=== PATIENT | male | born 1980 | race Caucasian/White ===

== ENCOUNTER 2019-07-25 12:36 | Observation (INO) | payer OTHER, SELFPAY ==
[2019-07-25] MEDS ORDERED: Morphine 4 MG/ML VIAL ONE ×2 (13:00→14:36)
[2019-07-25] MEDS ORDERED: Ondansetron PF 4 MG/2 ML Vial ONE (13:01)
[2019-07-25] MEDS ORDERED: Adacel (T-DAP) 0.5 ML SYRINGE ONE (13:01)
[2019-07-25 13:09] LABS: #Basophils 0.1 thou/uL (0.0-0.2); #Eosinphils 0.3 thou/uL (0.0-0.7); #Lymphocytes 2.4 thou/uL (1.20-3.40); #Monocytes 0.4 thou/uL (0.11-0.59); #Neutrophils 2.9 thou/uL (1.40-6.50); %Basophils 0.9 % (0.0-1.0); %Eosinophils 5.5 % (0.0-10.0); %Lymphocytes 39.4 % (21.0-51.0); %Monocytes 6.1 % (0.0-10.0); %Neutrophils 48.1 % (42.0-75.0); Hemoglobin 15.7 g/dL (14.0-18.0); Mean Corpuscular Hemoglobin 30.3 pg (27.0-31.0); Mean Platelet Volume 7.2 fL (7.4-10.4); Platelet Count 254 thou/uL (130-400); RBC Distribution Width 11.7 % (11.5-14.5); Red Blood Cell (RBC) Count 5.19 mill/uL (4.70-6.10); White Blood Cell (WBC) Count 6.1 thou/uL (4.8-10.8)
[2019-07-25 13:22] LABS: PTT 28.2 SEC (22.9-36.1)
[2019-07-25 13:23] LABS: Prothrombin Time 13.3 SEC (12.0-14.7)
[2019-07-25 13:30] LABS: ALT (SGPT) 44 U/L (8-55); AST (SGOT) 26 U/L (5-34); Albumin 4.7 g/dL (3.5-5.0); Alkaline Phosphatase 81 U/L (40-110); Anion Gap 14 mmol/L (10-20); BUN (Urea Nitrogen) 21 mg/dL (8.9-20.6); Bilirubin, Total 0.5 mg/dL (0.2-1.2); CK (CPK) 184 U/L (30-200); Calc. Creatinine Clearance 0 mL/min (70-130); Calcium 9.9 mg/dL (7.8-10.44); Carbon Dioxide 25 mmol/L (22-29); Chloride 103 mmol/L (98-107); Estimated GFR-MDRD 68; Globulin 2.3 g/dL (2.4-3.5); Glucose 115 mg/dL (70-105); Potassium 3.9 mmol/L (3.5-5.1); Sodium 138 mmol/L (136-145)
[2019-07-25] MEDS ORDERED: Crotalidae Polyvlnt Antivenin 4 GM in Sodium Chloride 0.9% 250 ML 250 ML IVPB SCH (15:00)
[2019-07-25] MEDS ORDERED: HOLD ALL ANTI-COAGULANTS/ANTI-PLATELETS/NSAIDS PO SCH (15:00)
--- NOTE | 2019-07-25 15:25 | HP ---
PRIMARY CARE PHYSICIAN: [facility] Call admission. REASON FOR ADMISSION: Snake bite. HISTORY OF PRESENT ILLNESS: A 39-year-old male with past medical history of bipolar disorder, who was doing gardening work this morning. At that point, he was stuck by Copper[place] snake. Copperhead snake bit him over left index finger, and subsequently, he was experiencing throbbing pain. His swelling was progressing to left hand. He was having 6/10 in intensity pain. He denies any shortness of breath, nausea, vomiting, chest pain, chest tightness, or wheezing. He denies any similar problem in the past. He came to emergency room and we noted that his swelling was progressing, and that is why the ER physician decided to give him CroFab. The patient will be admitted for observation. REVIEW OF SYSTEMS: CONSTITUTIONAL: Negative for weight loss or gain, ability to conduct usual activities. SKIN: Negative for rash, itching. EYES: Negative for double vision, pain. ENT/MOUTH: Negative for nose bleeding, neck stiffness, pain, tenderness. CARDIOVASCULAR: Negative for palpitations, dyspnea on exertion, orthopnea. RESPIRATORY: Negative for shortness of breath, wheezing, cough, hemoptysis, fever or night sweats. GASTROINTESTINAL: Negative for poor appetite, abdominal pain, heartburn, nausea, vomiting, constipation, or diarrhea. GENITOURINARY: Negative for urgency, frequency, dysuria, nocturia. MUSCULOSKELETAL: Negative for pain, swelling. NEUROLOGIC/PSYCHIATRIC: Negative for anxiety, depression. ALLERGY/IMMUNOLOGIC: Negative for skin rash, bleeding tendency. Please see my HPI for pertinent positives and negatives. All other review of systems reviewed and negative except as mentioned in HPI. PAST MEDICAL HISTORY: Reviewed and negative. PAST SURGICAL HISTORY: Appendicectomy. PAST PSYCHIATRIC HISTORY: 1. Anxiety. 2. Depression. 3. Bipolar disorder. SOCIAL HISTORY: The patient lives at home. He is not working. He lives with family. He abuses marijuana on and off basis. He smokes occasionally. He denies any alcohol abuse. FAMILY HISTORY: No family history of significant coronary artery disease, stroke, or cancer. CURRENT HOME MEDICATIONS: The patient takes lithium and other medication for his psychiatric problem. He did not bring medication, so unable to review the dose. ALLERGIES: PENICILLIN. EMERGENCY ROOM COURSE: The patient is receiving IV fluid. He is given 4 vial of CroFab, morphine 4 mg IV push given x2, Tdap booster dose is given, Zofran given. PHYSICAL EXAMINATION: VITAL SIGNS: Currently, blood pressure 132/81, pulse 86, respiratory rate 20, temperature 97.5, and saturation 98% on room air. Weight 86.1 kg. GENERAL: The patient is currently alert and oriented x3, in no acute distress. HEAD: Normocephalic and atraumatic. EYES: Pupils round and reactive to light. Extraocular muscle intact. ENT: Oropharynx within normal limits. Moist mucous membranes. No oral lesion. No pharyngeal erythema. No exudate. NECK: Supple. No JVD. No thyromegaly. No carotid bruit. No jugular venous distention. LUNGS: Clear to auscultation without any rhonchi or rales. CARDIAC: S1 and S2. Regular without any murmur. No gallop. No rub. ABDOMEN: Soft. Bowel sounds present. Nontender. Nondistended. No organomegaly. No mass. No suprapubic tenderness. BACK: Unremarkable. No CVA tenderness. EXTREMITIES: Upper extremities; passive movement of all joints are normal. Left index finger has a bite mirlande over middle phalanx. Swelling is noted over the entire dorsal aspect of left hand with tenderness and mild warmth without any erythema. Lower extremities; no edema. Good distal pulsation. SKIN: No skin rash. HEMATOLOGICAL SYSTEM: No lymphadenopathy. NEUROLOGIC: Nonfocal examination. Speech normal. PSYCHIATRIC: Normal affect. SIGNIFICANT LABORATORY DATA: CBC; WBC 6.1, hemoglobin 15.7, and platelets 254. INR 1.0 and fibrinogen 285. BMP; sodium 138, potassium 3.9, chloride 103, carbon dioxide 25, anion gap 14, BUN 21, creatinine 1.19, glucose 115, and calcium 9.9. LFT; AST 26, ALT 44, alkaline phosphatase 81, and albumin 4.7. ASSESSMENT AND PLAN: 1. Left hand swelling secondary to snake bite. As swelling is progressing and the patient has worsening pain, that is why the patient will receive CroFab as per protocol. The patient will be observed on medical floor. We will continue to monitor his swelling on left upper extremity, and based on protocol, we will decide to give him CroFab. We will watch for any side effects or any allergic reaction. We will control his pain with morphine p.r.n. basis. We will monitor labs as necessary. 2. Anxiety, depression, and bipolar disorder. The patient will continue all his psychiatric medication after verification while in hospital. 3. Cannabis abuse. Counseling given for healthy lifestyle. 4. Deep venous thrombosis prophylaxis, not needed because we are expecting discharge in 24 hours. 5. Gastrointestinal prophylaxis. Pepcid 20 mg p.o. b.i.d. 6. Code status. The patient is full code. The patient does not have any surrogate decision maker. DISPOSITION PLAN: Based on clinical course, we are expecting the patient's stay in hospital 24 hours. Plan of care discussed with the patient and his mother at bedside in the emergency room. Job ID: [id number]
[2019-07-25 16:33] VITALS: BMI 26.4
[2019-07-25] MEDS ORDERED: Zolpidem Tartrate 5 MG TAB PO PRN (16:34)
[2019-07-25] MEDS ORDERED: Senokot S 8.6-50 MG TAB PO PRN (16:34)
[2019-07-25] MEDS ORDERED: Loperamide HCl 2 MG CAP PO PRN (16:34)
[2019-07-25] MEDS ORDERED: Ondansetron PF 4 MG/2 ML Vial IVP PRN (16:34)
[2019-07-25] MEDS ORDERED: Sodium Chloride 0.65% Nasal 44 ML BOT EA NARE PRN (16:34)
[2019-07-25] MEDS ORDERED: HYDROcodone/Acetaminophen 5/325 mg Tablet PO PRN (16:34)
[2019-07-25] MEDS ORDERED: Loratadine 10 MG TAB PO PRN (16:34)
[2019-07-25] MEDS ORDERED: Ondansetron ODT 4 MG TAB PO PRN (16:34)
[2019-07-25] MEDS ORDERED: Cepastat Lozenges 1 LOZ PO PRN (16:34)
[2019-07-25] MEDS ORDERED: Acetaminophen 325 MG TAB PO PRN (16:34)
[2019-07-25] MEDS ORDERED: Calcium Carbonate 500 MG ChewTAB PO PRN (16:34)
[2019-07-25] MEDS ORDERED: hydrALAZINE 20 MG/ML VIAL SLOW IVP PRN (16:34)
[2019-07-25] MEDS ORDERED: Diabetic Tussin 200 MG/10 ML UDCUP PO PRN (16:34)
[2019-07-25] MEDS ORDERED: Bisacodyl 10 MG SUPP PR PRN (16:34)
[2019-07-25] MEDS: Morphine 4 MG/ML VIAL SLOW IVP PRN ×2 (16:50→21:07)
[2019-07-25] MEDS: Famotidine 20 MG TAB PO SCH (21:00)
[2019-07-26 05:02] LABS: #Basophils 0.1 thou/uL (0.0-0.2); #Eosinphils 0.4 thou/uL (0.0-0.7); #Lymphocytes 2.6 thou/uL (1.20-3.40); #Monocytes 0.4 thou/uL (0.11-0.59); #Neutrophils 3.5 thou/uL (1.40-6.50); %Basophils 1.1 % (0.0-1.0); %Eosinophils 5.3 % (0.0-10.0); %Lymphocytes 37.6 % (21.0-51.0); %Monocytes 5.6 % (0.0-10.0); %Neutrophils 50.5 % (42.0-75.0); Hemoglobin 14.6 g/dL (14.0-18.0); Mean Corpuscular HGB CONC 34.1 g/dL (32.0-36.0); Mean Corpuscular Hemoglobin 30.6 pg (27.0-31.0); Mean Corpuscular Volume 89.7 fL (78.0-98.0); Mean Platelet Volume 6.8 fL (7.4-10.4); Platelet Count 210 thou/uL (130-400); RBC Distribution Width 11.7 % (11.5-14.5); Red Blood Cell (RBC) Count 4.79 mill/uL (4.70-6.10); White Blood Cell (WBC) Count 6.9 thou/uL (4.8-10.8)
[2019-07-26 05:20] LABS: Anion Gap 10 mmol/L (10-20); BUN (Urea Nitrogen) 15 mg/dL (8.9-20.6); Calc. Creatinine Clearance 132 mL/min (70-130); Calcium 8.7 mg/dL (7.8-10.44); Carbon Dioxide 23 mmol/L (22-29); Chloride 108 mmol/L (98-107); Estimated GFR-MDRD Greater than 90; Glucose 98 mg/dL (70-105); Sodium 137 mmol/L (136-145)
[2019-07-26 09:31] VITALS: BP 127/75; TEMP 98.4
[2019-07-26] MEDS: Famotidine 20 MG TAB PO SCH (09:35)
[2019-07-26 11:09] LABS: Prothrombin Time 13.3 SEC (12.0-14.7)
[2019-07-26 11:10] LABS: PTT 31.6 SEC (22.9-36.1)
--- NOTE | 2019-07-27 06:59 | DIS ---
DATE OF ADMISSION: 07/25/2019 DATE OF DISCHARGE: 07/26/2019 DISPOSITION: The patient left against medical advice. FINAL DIAGNOSIS: Right hand copperhead snakebite. CONDITION: Stable and improved. DIET: Regular diet. MEDICATIONS: Please refer to medication discharge reconciliation form. ACTIVITY: As tolerated. Do not over exert yourself, no strenuous activities. DISCHARGE INSTRUCTIONS: If any fevers, chills, nausea, vomiting, chest pain, shortness of breath, bleeding, swelling, weakness, numbness to seek immediate medical attention. FOLLOWUP: Followup primary care physician in 1 week. BRIEF HOSPITAL COURSE: Jethro Hernandez is a 39-year-old male who was admitted to the hospital after having been bit by a copperhead snake for which he was placed on observation after receiving anti-venin therapy, both in the emergency room and then subsequently had a second dose while in the observation status for which there was no evidence of bleeding. A repeat PT/INR was done this morning. The patient did not want to wait for test results. He did not have any thrombocytopenia. His coagulation profile was normal. He remained afebrile. There was no evidence of any skin or soft tissue infection. He had full range of motion of all his 5 fingers as he was able to hold a consultant internship and not having numbness, no tingling. There was no discoloration. On the day of discharge in my yrgo-pi-lloc meeting with the patient, discussed all discharge instructions including the need for compliance with medication, followup and when to return to emergency room for, which he has verbalized understanding. The patient wanted to leave against medical advice prior to having test results been drawn for his coagulation, which is important just to make sure that he did not develop any coagulopathy after approximately 24 hours. The patient wanted to leave and did not want to wait. Nursing was aware about patient leaving against medical advice. Job ID: [id number]
== END 2019-07-26 11:15 | disposition left against medical advice (07) ==
LOC: ERS 12:36 → 2SW 14:52
PROVIDERS: ADMIT Internal Medicine; ATTEND Internal Medicine
DX: T63.061A Toxic effect of venom of other North and South American snake, accidental (unintentional), initial encounter (principal); M79.89 Other specified soft tissue disorders; M79.645 Pain in left finger(s); F31.9 Bipolar disorder, unspecified; F41.9 Anxiety disorder, unspecified; F12.10 Cannabis abuse, uncomplicated; F17.210 Nicotine dependence, cigarettes, uncomplicated; Z53.21 Procedure and treatment not carried out due to patient leaving prior to being seen by health care provider; Z79.899 Other long term (current) drug therapy
CPT/HCPCS: 36415; 80048; 80053; 82550; 85025; 85384; 85610; 85730; 90471; 90715; 93005; 96361; 96365; 96366; 96374; 96375; 96376; G0378; J0840; J2270; J2405; J7050

== ENCOUNTER 2020-06-16 11:14 | Inpatient (IN) | payer SELFPAY ==
[2020-06-16] MEDS ORDERED: Communication Order-Pharmacy FS ONE (12:03)
[2020-06-16] MEDS ORDERED: Aspirin 81 mg Enteric Coated Tablet PO SCH (13:00)
[2020-06-16 13:12] LABS: #Basophils 0.1 thou/uL (0.0-0.2); #Eosinphils 0.3 thou/uL (0.0-0.7); #Lymphocytes 2.4 thou/uL (1.20-3.40); #Monocytes 0.3 thou/uL (0.11-0.59); #Neutrophils 3.6 thou/uL (1.40-6.50); %Basophils 0.9 % (0.0-1.0); %Eosinophils 4.6 % (0.0-10.0); %Lymphocytes 36.4 % (21.0-51.0); %Monocytes 4.9 % (0.0-10.0); %Neutrophils 53.2 % (42.0-75.0); Hemoglobin 15.2 g/dL (14.0-18.0); Mean Corpuscular HGB CONC 32.9 g/dL (32.0-36.0); Mean Corpuscular Hemoglobin 29.3 pg (27.0-31.0); Mean Corpuscular Volume 88.8 fL (78.0-98.0); Mean Platelet Volume 7.6 fL (7.4-10.4); Platelet Count 222 thou/uL (130-400); RBC Distribution Width 11.1 % (11.5-14.5); Red Blood Cell (RBC) Count 5.19 mill/uL (4.70-6.10); White Blood Cell (WBC) Count 6.7 thou/uL (4.8-10.8)
[2020-06-16 13:32] LABS: Anion Gap 9 mmol/L (10-20); BUN (Urea Nitrogen) 15 mg/dL (8.9-20.6); Calc. Creatinine Clearance 118 mL/min (70-130); Calcium 9.3 mg/dL (7.8-10.44); Carbon Dioxide 26 mmol/L (22-29); Chloride 104 mmol/L (98-107); Estimated GFR-MDRD 82; Glucose 97 mg/dL (70-105); Potassium 4.3 mmol/L (3.5-5.1); Sodium 135 mmol/L (136-145)
[2020-06-16 13:47] LABS: INR-International Normal Ratio 0.9; Prothrombin Time 12.1 sec (12.0-14.7)
[2020-06-16 13:48] LABS: PTT 28.7 sec (22.9-36.1)
[2020-06-16] MEDS ORDERED: Metoprolol Tartrate 25 MG TAB PO SCH (15:15)
--- NOTE | 2020-06-16 18:56 | CON ---
DATE OF CONSULTATION: HISTORY OF PRESENT ILLNESS: This is a 40-year-old gentleman, who was being evaluated by Dr. Louis for exertional angina. The patient had a markedly abnormal myocardial perfusion study and then today underwent cardiac catheterization where he was found to have severe triple-vessel disease including essentially occluded right coronary artery with right to right and left to right collaterals, subtotal diagonal that filled slowly 75% proximal LAD and 90% mid circumflex prior to a bifurcating OM. PAST MEDICAL HISTORY: Bipolar disorder. He denies any history of hypertension or dyslipidemia. He does not smoke cigarettes, but does use marijuana. FAMILY HISTORY: Negative for early heart disease, although grandparents did have heart disease later in life. SOCIAL HISTORY: He is a nonsmoker besides marijuana, nondrinker, lives with his parents, unemployed at the present time with both his parents being retired educator from the [employer]. PAST SURGICAL HISTORY: Appendectomy and lipoma removal. ALLERGIES: PENICILLIN. MEDICATIONS: 1. Aspirin 81 a day. 2. Fluoxetine 20 a day. 3. Trileptal 600 daily. 4. [place] 600 mg b.i.d. PHYSICAL EXAMINATION: VITAL SIGNS: Height 5 feet 11 inches, weight 188 pounds. NECK: No carotid bruits. LUNGS: Clear to auscultation. CARDIAC: Regular rate and rhythm. No murmurs. ABDOMEN: Firm, soft, and nontender. No masses. EXTREMITIES: He has palpable femoral, popliteal, and posterior tibial pulses with no peripheral edema. No dorsalis pedis pulses. He has a compression device on his right radial artery and easily palpated left radial artery with a normal Reji test on the left, which is his nondominant arm. PLAN: Plan at this time is for multi-vessel coronary bypass grafting, [place] to LAD, saphenous vein to diagonal, distal right coronary artery and radial to the OM. Additional information of myocardial perfusion study, ejection fraction estimated at 47%. Cardiac echo, ejection fraction 60% with mild MR. Plan on coronary bypass grafting. I have gone over the risks, complications, benefits, and expectations with the patient. He has expressed some reservations about having surgery, but ultimately has decided to proceed. Job ID: [id number]
--- NOTE | 2020-06-16 18:59 | PDOC.HHP ---
Hospitalist HPI - History of Present Illness angina, admission for urgent bypass History of Present Illness: This is a 40 year old male with past medical history of schizophrenia, bipolar, depression who presented to the hospital for need for urgent bypass. Patient states that he had started developing chest pain and shortness of breath in October of this year. He describes his chest pain as a burning sensation in his chest that would occur after performing strenuous activities, such as mowing the lawn or after taking a shower, but also would occur spontaneously and while laying down. Patient reports that after performing these activities he would become diaphoretic, dizzy and nauseous. He would also get palpitations and was told that he has atrial flutter. Patient also reports having to stop frequently to catch his breath. He also describes a sensation of bloating in his stomach which is not related to eating food. The patient went to see a hip hop dance instructor and had a stress test which was abnormal. He then underwent a cardiac cath today and was found to have severe three-vessel disease with 99% lesion in his left circumflex, 75% stenosis LAD, 99 stenosis in ostial banch of LAD. He was transferred here for admission for bypass. Patient currently has never smoked cigarettes but does use marijuana on a daily basis. Hospitalist ROS - Review of Systems Constitutional: denies: fever, chills Eyes: denies: pain, vision change ENT: denies: ear pain, ear discharge Respiratory: denies: cough, shortness of breath Cardiovascular: denies: chest pain, palpitations, orthopnea - Exam General Appearance: NAD, awake alert Eye: PERRL, anicteric sclera ENT: normocephalic atraumatic, no oropharyngeal lesions Neck: no JVD Heart: RRR, no murmur, no gallops, no rubs Respiratory: CTAB, no wheezes, no rales, no ronchi, normal chest expansion, no tachypnea, normal percussion Gastrointestinal: soft, non-tender, non-distended, normal bowel sounds Extremities: no cyanosis, no clubbing, no edema Skin: normal turgor, no lesions, no rashes Neurological: cranial nerve grossly intact, normal sensation to touch, no weakness, no new deficit Musculoskeletal: normal tone, normal strength, no muscle wasting Psychiatric: normal affect, normal behavior, A&O x 3 Hospitalist Results - Labs Result Diagrams: 06/16/20 12:58 06/16/20 12:58 Lab results: WBC 6.7 thou/uL (4.8-10.8) 06/16/20 12:58 Hgb 15.2 g/dL (14.0-18.0) 06/16/20 12:58 Hct 46.1 % (42.0-52.0) 06/16/20 12:58 MCV 88.8 fL (78.0-98.0) 06/16/20 12:58 Plt Count 222 thou/uL (130-400) 06/16/20 12:58 Neutrophils % 53.2 % (42.0-75.0) 06/16/20 12:58 Sodium 135 mmol/L (136-145) L 06/16/20 12:58 Potassium 4.3 mmol/L (3.5-5.1) 06/16/20 12:58 Chloride 104 mmol/L (98-107) 06/16/20 12:58 Carbon Dioxide 26 mmol/L (22-29) 06/16/20 12:58 BUN 15 mg/dL (8.9-20.6) 06/16/20 12:58 Creatinine 1.00 mg/dL (0.7-1.3) 06/16/20 12:58 Glucose 97 mg/dL (70-105) 06/16/20 12:58 Calcium 9.3 mg/dL (7.8-10.44) 06/16/20 12:58 Troponin I 0.012 ng/mL (< 0.028) 06/16/20 12:50 Hospitalist H&P A/P - Plan Plan: Cardiac cath report 1. 20 % stenosis left main coronary artery 2. LAD 75% mid stenosis at location of a medium sized branching diagonal artery that has 99% ostial stenosis 3. 99% mid stenosis left circumflex 4. 99% mid stenosis This 40-year-old male with a past medical history of schizophrenia, bipolar, depression who presented to the emergency room after he was found to have three- vessel disease from an elective cardiac cath performed today. 3 vessel CAD - cardiothoracic surgery has been consulted for CABG. Cardiology has been consulted as well - will check EKG x 3, trend troponins and monitor on telemetry - continue aspirin 81 mg daily and statin . Metoprolol 25 mg bid has been started as well Bipolar - continue lithium, seroquel Depression - continue fluoxetine and mirtazapine Chronic hair loss - continue finasteride Code status: full code.
--- NOTE | 2020-06-16 19:26 | PDOC.FMACP ---
Advance Care Planning - Note Summary: Advanced Care Planning was discussed. The diagnosis, prognosis and goals of care were discussed. Appropriate forms and documentation to accomplish the goals of care were discussed. All questions were answered. The Palliative Care Team will be engaged to assist with completion of any outstanding forms that are needed. Patient reports he would like to be resuscitated just a few attempts but does not want prolonged measures or life support to save him. He would like to be full code for now Time Spent (mins): 40
[2020-06-16] MEDS ORDERED: Atorvastatin Calcium 40 MG TAB PO SCH (21:00)
[2020-06-16] MEDS ORDERED: Atorvastatin Calcium 20 MG TAB PO SCH (21:00)
[2020-06-16] MEDS: Lithium Carbonate 150 MG CAP PO SCH (21:11)
--- NOTE | 2020-06-16 21:11 | CON ---
DATE OF CONSULTATION: HISTORY OF PRESENT ILLNESS: The patient is a 40-year-old gentleman, with history of coronary artery disease, who presents with recurrent chest discomfort. The patient has had chest discomfort for at least six months. He reports that initially it occurred primarily with exertion. The patient states it started occurring with minimal exertion and then most recently at rest. The patient today underwent cardiac catheterization. He was found to have severe three-vessel coronary artery disease and was transferred for coronary artery bypass surgery. The patient denies having any present chest discomfort. PAST MEDICAL HISTORY: 1. Coronary artery disease. 2. Dyslipidemia. 3. Bipolar disorder. PAST SURGICAL HISTORY: Appendectomy. MEDICATIONS: 1. [place] carbonate 600 b.i.d. 2. Prozac 20 daily. 3. Trileptal 600 daily. 4. Mirtazapine 15 daily. 5. Seroquel 200 at bedtime. ALLERGIES: PENICILLIN. FAMILY HISTORY: There is a positive family history of heart disease, grandfather had coronary artery disease. REVIEW OF SYSTEMS: Ten-point system otherwise unremarkable. No history of easy bruising or bleeding. PHYSICAL EXAMINATION: GENERAL: A well-developed gentleman, in no acute distress. VITAL SIGNS: Blood pressure is 143/87. NECK: No jugular venous distention. LUNGS: Clear to auscultation. HEART: Regular rate and rhythm. Normal S1 and S2. ABDOMEN: Nondistended. EXTREMITIES: Showed no edema. VASCULAR: Radial pulses 2+. LABORATORY DATA: Sodium 135, potassium 4.3, chloride 104, bicarbonate 29, BUN 15, creatinine 1.0, glucose 97. White blood cell count 6.7, hemoglobin 15.2, hematocrit 46.1, platelets 222. INR was 0.9. EKG is pending. IMPRESSION: 1. Severe three-vessel coronary artery disease. 2. Bipolar disorder. 3. Hypertriglyceridemia. This gentleman presents with severe three-vessel coronary artery disease with minimal risk factors. The patient is being treated with Lipitor and aspirin. He needs to be on high-dose intensity statin, so will increase the dose to 40 mg. We will check the patient's triglycerides. He will need to be on Vascepa. He has hypertriglyceridemia. I will start the patient on a low dose of beta maria fernanda. We will follow this patient with you through his surgery. Job ID: [id number] [facility]
[2020-06-16] MEDS: Mirtazapine 15 MG TAB PO SCH (21:12)
[2020-06-16] MEDS: Metoprolol Tartrate 25 MG TAB PO SCH (21:12)
[2020-06-17 02:34] LABS: Anion Gap 12 mmol/L (10-20); BUN (Urea Nitrogen) 20 mg/dL (8.9-20.6); Calc. Creatinine Clearance 116 mL/min (70-130); Calcium 9.1 mg/dL (7.8-10.44); Carbon Dioxide 24 mmol/L (22-29); Chloride 107 mmol/L (98-107); Cholesterol 228 mg/dl (< 200 Desired); Estimated GFR-MDRD 81; Glucose 100 mg/dL (70-105); HDL Cholesterol 38 mg/dL (>60 Neg Risk); LDL Cholesterol, Calculated 144 mg/dL; Potassium 4.4 mmol/L (3.5-5.1); Sodium 139 mmol/L (136-145); Triglycerides 229 mg/dL (Less than 150)
[2020-06-17] MEDS ORDERED: Albumin 5% 500 ML ONE (06:34)
[2020-06-17] MEDS ORDERED: Heparin 10,000 UNITS/1 ML VIAL 30,000 UNITS in Sodium Chloride 0.9% 1,000 ML FS SCH (06:45)
[2020-06-17] MEDS ORDERED: Midazolam HCl 2 mg/2 ml Vial ONE (07:13)
[2020-06-17] MEDS ORDERED: Midazolam HCl 5 mg/5 ml Vial ONE (07:16)
[2020-06-17] MEDS ORDERED: Fentanyl 250 MCG/5 ML VIAL ONE (07:16)
[2020-06-17] MEDS ORDERED: Clindamycin/D5W 900 mg/50 ml Premix Bag ONE (07:19)
[2020-06-17] MEDS ORDERED: Levofloxacin 500 mg/D5W 100 ml Premix Bag ONE (07:19)
[2020-06-17] MEDS ORDERED: PHENYLEPHRINE-NS 100 MCG/ML 10 ML SYRINGE ONE (08:41)
[2020-06-17] MEDS ORDERED: Aspirin Chewable 81 MG TAB PO SCH (09:00)
[2020-06-17] MEDS ORDERED: OXcarbazepine 600 MG TAB PO SCH (09:00)
[2020-06-17] MEDS ORDERED: Rocuronium Bromide 50 MG/5 ML VIAL ONE (09:10)
[2020-06-17] MEDS ORDERED: Sodium Bicarb 50 MEQ/50 ML Abboject 8.4% SYRINGE ONE (09:12)
[2020-06-17] MEDS ORDERED: Heparin 30,000 units/30 ml VIAL ONE (09:12)
[2020-06-17] MEDS ORDERED: PROPOFOL 200 MG/20 ML VIAL ONE (09:12)
[2020-06-17] MEDS ORDERED: Cardioplegic Soln 1,000 ML BAG ONE (09:12)
[2020-06-17] MEDS ORDERED: Magnesium Sulfate 1 GM/2 ML VIAL ONE (09:12)
[2020-06-17] MEDS ORDERED: Protamine Sulfate 250 MG/25 ML VIAL ONE (09:12)
[2020-06-17] MEDS ORDERED: Heparin 5,000 UNITS/ML VIAL ONE (09:12)
[2020-06-17] MEDS ORDERED: Papaverine 60 MG/2 ML VIAL ONE (09:12)
[2020-06-17] MEDS ORDERED: Potassium Chloride 60 MEQ/30 ML VIAL ONE (09:12)
[2020-06-17] MEDS ORDERED: Lidocaine 2% PF 5 ML VIAL ONE (09:12)
[2020-06-17] MEDS ORDERED: Aminocaproic Acid 5 GM/20 ML VIAL ONE (09:12)
[2020-06-17] MEDS ORDERED: Rocuronium Bromide 10 MG/ML (10ML VIAL) ONE (09:12)
[2020-06-17] MEDS ORDERED: Thrombin 5000 UNITS/5 ML VIAL ONE (09:12)
[2020-06-17] MEDS ORDERED: Calcium Chloride 1 GM/10 ML Abboject SYRINGE ONE (09:12)
[2020-06-17] MEDS: OXcarbazepine 300 MG TAB PO SCH (10:34)
[2020-06-17] MEDS: FLUoxetine HCl 20 MG CAP PO SCH (10:34)
[2020-06-17] MEDS: Metoprolol Tartrate 25 MG TAB PO SCH (10:34)
[2020-06-17] MEDS: Lithium Carbonate 150 MG CAP PO SCH ×2 (10:34→20:17)
[2020-06-17] MEDS ORDERED: Morphine 2 MG/ML VIAL SLOW IVP PRN (11:24)
[2020-06-17] MEDS ORDERED: hydrALAZINE 20 MG/ML VIAL SLOW IVP PRN (11:24)
[2020-06-17] MEDS ORDERED: Potassium Chloride 20 MEQ/100 ML PREMIX BAG IVPB PRN (11:24)
[2020-06-17] MEDS ORDERED: Nitroglycerin 50 MG/250 ML BOT 250 ML IVPB PRN (11:24)
[2020-06-17] MEDS ORDERED: Mag-Al 1200 mg/1200 mg/30 ML UDCUP PO PRN (11:24)
[2020-06-17] MEDS ORDERED: DOPamine 400 MG/D5W 250 ML 250 ML IVPB PRN (11:24)
[2020-06-17] MEDS ORDERED: Guaifenesin DM 100-10/5 ML UDCUP PO PRN (11:24)
[2020-06-17] MEDS ORDERED: Hetastarch 6% 500 ML 500 ML IVPB PRN (11:24)
[2020-06-17] MEDS ORDERED: Post-Op Insulin Drip Protocol IVPB ONE (11:24)
[2020-06-17] MEDS ORDERED: Norepinephrine 8 MG/0.9% NS 250 ML IVPB PRN (11:24)
[2020-06-17] MEDS ORDERED: niCARdipine 25 MG in Sodium Chloride 0.9% 250 ML 240 ML IVPB PRN (11:24)
[2020-06-17] MEDS ORDERED: Bisacodyl 10 MG SUPP PR PRN (11:24)
[2020-06-17] MEDS ORDERED: Acetaminophen 325 MG TAB PO PRN (11:24)
[2020-06-17] MEDS ORDERED: HYDROcodone/Acetaminophen 5/325 mg Tablet PO PRN (11:24)
[2020-06-17] MEDS ORDERED: Ondansetron PF 4 MG/2 ML Vial IVP PRN (11:24)
[2020-06-17] MEDS ORDERED: Bisacodyl 5 MG TAB PO PRN (11:24)
[2020-06-17] MEDS ORDERED: Dextrose 50% Abboject 50 ML SYRINGE SLOW IVP PRN (11:27)
[2020-06-17] MEDS ORDERED: Insulin Regular 300 UNITS/3 ML VIAL SC PRN (11:27)
[2020-06-17] MEDS ORDERED: Dextrose 5% in Water 1,000 ML IV PRN (11:27)
[2020-06-17] MEDS ORDERED: HUMULIN R 100 UNITS in Sodium Chloride 0.9% 100 ML IVPB SCH (11:27)
[2020-06-17] MEDS ORDERED: Magnesium 2 GM/50 ML 2 GM in Premix Bag 1 BAG IVPB SCH (11:30)
--- NOTE | 2020-06-17 11:54 | RAD ---
EXAM: Single view of the chest HISTORY: Status post open heart surgery COMPARISON: None FINDINGS: Single view of the chest shows a normal sized cardiomediastinal silhouette. The patient is status post sternotomy for CABG. There is an endotracheal tube with its tip at the lower border of the clavicles. A right chest tube is in good position without evidence of pneumothorax. A right subcl rekha central venous catheter seen with its tip at the atriocaval junction. There is no evidence of consolidation, mass, or pleural effusion. The bones are unremarkable IMPRESSION: Appropriate position of lines and tubes status post sternotomy
[2020-06-17] MEDS: Sodium Chloride 0.9% 1,000 ML IV SCH ×2 (11:57→20:19)
[2020-06-17] MEDS: Ketorolac Tromethamine 30 MG/ML VIAL IVP SCH ×3 (11:58→23:23)
[2020-06-17 12:00] LABS: #Basophils 0.1 thou/uL (0.0-0.2); #Eosinphils 0.2 thou/uL (0.0-0.7); #Lymphocytes 2.6 thou/uL (1.20-3.40); #Monocytes 0.9 thou/uL (0.11-0.59); #Neutrophils 15.9 thou/uL (1.40-6.50); %Basophils 0.4 % (0.0-1.0); %Eosinophils 0.8 % (0.0-10.0); %Lymphocytes 13.3 % (21.0-51.0); %Monocytes 4.4 % (0.0-10.0); %Neutrophils 81.1 % (42.0-75.0); Hemoglobin 12.7 g/dL (14.0-18.0); Mean Corpuscular HGB CONC 33.1 g/dL (32.0-36.0); Mean Corpuscular Hemoglobin 29.8 pg (27.0-31.0); Mean Platelet Volume 7.9 fL (7.4-10.4); Platelet Count 200 thou/uL (130-400); RBC Distribution Width 11.2 % (11.5-14.5); Red Blood Cell (RBC) Count 4.26 mill/uL (4.70-6.10); White Blood Cell (WBC) Count 19.6 thou/uL (4.8-10.8)
[2020-06-17 12:02] LABS: Actual Bicarbonate (HCO3a) 21.1 mEq/L (22-28); Base Excess (BEa) -4.7 mEq/L (-2.0 to +3.0); CO2 Tension 41.5 mmHg (35.0-45.0); Calcium, Ionized (arterial) 1.15 mmol/L (1.12-1.30); Carboxyhemoglobin (COHb) 0.4 gm% (0.0-3.0); Hemoglobin (Hb) 13.2 g/dL (14.0-18.0); O2 Tension (PaO2), arterial 157.1 mmHg (80.0-100.0); Potassium - ABG Lab 4.38 mmol/L (3.70-5.30); pH, Arterial 7.32 (7.35-7.45)
[2020-06-17 12:03] LABS: ALV-art Gradient 147.525 (0-20); Puncture Site ALINE
[2020-06-17 12:05] LABS: INR-International Normal Ratio 1.3; PTT 30.9 sec (22.9-36.1); Prothrombin Time 15.7 sec (12.0-14.7)
[2020-06-17 12:21] LABS: Anion Gap 8 mmol/L (10-20); BUN (Urea Nitrogen) 16 mg/dL (8.9-20.6); Calc. Creatinine Clearance 147 mL/min (70-130); Calcium 7.9 mg/dL (7.8-10.44); Carbon Dioxide 25 mmol/L (22-29); Chloride 111 mmol/L (98-107); Estimated GFR-MDRD Greater than 90; Glucose 192 mg/dL (70-105); Potassium 4.6 mmol/L (3.5-5.1); Sodium 139 mmol/L (136-145)
[2020-06-17] MEDS ORDERED: Clindamycin/D5W 900 MG in Premix Bag 1 BAG IVPB SCH (13:00)
[2020-06-17 13:20] LABS: Band 19 % (5-11); Lymphocytes 15 % (21-51); Monocytes 4 % (0-10)
[2020-06-17 13:21] LABS: Platelet Morphology Comment Appears Adequate
[2020-06-17] MEDS: Clindamycin/D5W 900 MG in Premix Bag 1 BAG IVPB SCH ×2 (13:31→20:18)
--- NOTE | 2020-06-17 14:45 | PDOC.HOSPP ---
- Subjective Encounter Date: 06/17/20 Encounter Time: 11:00 Subjective: the patient is s/p CABG today .. He was intubated when I saw him. He is following commands The patient states he is in pain. - Objective Vital Signs & Weight: Vital Signs (12 hours) Temp Pulse Resp BP BP Pulse Ox 06/17/20 13:20 80 21 H 99 06/17/20 12:00 17 06/17/20 11:42 85 135/71 06/17/20 11:36 97.7 F 06/17/20 04:00 97.7 F 67 16 98/53 L 97 Weight Weight 196 lb 3.382 oz Most Recent Monitor Data Heart Rate from ECG 94 NIBP 110/71 NIBP BP-Mean 84 Respiration from ECG 28 SpO2 92 I&O: 06/16/20 06/17/20 06/18/20 06:59 06:59 06:59 Intake Total 2920 Output Total 535 Balance 2920 -535 Result Diagrams: 06/17/20 11:47 06/17/20 11:47 Additional Labs: Accuchecks 06/17/20 06/17/20 06/17/20 14:02 13:05 11:48 POC Glucose 137 H 150 H 161 H 06/17/20 06/17/20 06/17/20 10:53 10:14 09:43 POC Glucose 174 H 139 H 159 H 06/17/20 06/17/20 09:12 08:03 POC Glucose 178 H 118 H Hospitalist ROS - Review of Systems ROS unobtainable: due to endotracheal tube Constitutional: reports: fever - Medication Medications: Active Medications Generic Name Dose Route Start Last Admin Trade Name Rochelle PRN Reason Stop Dose Admin Fluoxetine HCl 20 mg 06/17/20 09:00 06/17/20 10:34 Prozac PO Not Given DAILY PARVIZ Magnesium Sulfate 2 gm/ Device 50 mls @ 50 mls/hr 06/17/20 11:30 06/17/20 11: 56 IVPB 06/17/20 16:00 50 mls NOW PARVIZ Administration Sodium Chloride 1,000 mls @ 100 mls/hr 06/17/20 11:30 06/17/20 11:57 Normal Saline 0.9% IV 1,000 mls .Q10H PARVIZ Administration Insulin Human Regular 100 101 mls @ 0 mls/hr 06/17/20 11:27 06/17/20 12:06 units/ Sodium Chloride IVPB 101 mls INF PARVIZ Administration Protocol As Directed Clindamycin Phosphate/Dextrose 50 mls @ 100 mls/hr 06/17/20 14:00 06/17/20 13 :31 900 mg/ Device IVPB 06/18/20 08:29 50 mls 0200,0800,1400,2000 PARVIZ Administration Ketorolac Tromethamine 15 mg 06/17/20 12:00 06/17/20 11:58 Toradol IVP 06/20/20 12:01 15 mg Q6HR PARVIZ Administration [place] Carbonate 600 mg 06/16/20 21:00 06/17/20 10:34 [place] Carbonate PO Not Given BID PARVIZ Mirtazapine 15 mg 06/16/20 21:00 06/16/20 21:12 Remeron PO 15 mg HS PARVIZ Administration Morphine Sulfate 2 mg 06/17/20 11:24 06/17/20 12:45 Morphine SLOW IVP 2 mg Q15MIN PRN Administration Severe Pain (7-10) Oxcarbazepine 600 mg 06/17/20 09:00 06/17/20 10:34 Trileptal PO Not Given DAILY PARVIZ Quetiapine Fumarate 200 mg 06/16/20 21:00 06/16/20 21:12 Seroquel PO 200 mg HS PARVIZ Administration - Exam General Appearance: NAD, awake alert General - other findings: lightly sedated, intubated Eye: PERRL, anicteric sclera ENT: normocephalic atraumatic, no oropharyngeal lesions Neck: no JVD Heart: RRR, no murmur, no gallops, no rubs Respiratory: CTAB, no wheezes, no rales, no ronchi Gastrointestinal: soft, non-tender, non-distended, normal bowel sounds Extremities: no cyanosis, no clubbing, no edema Skin: normal turgor, no lesions, no rashes Hosp A/P - Plan Cardiac cath report 1. 20 % stenosis left main coronary artery 2. LAD 75% mid stenosis at location of a medium sized branching diagonal artery that has 99% ostial stenosis 3. 99% mid stenosis left circumflex 4. 99% mid stenosis This 40-year-old male with a past medical history of schizophrenia, bipolar, depression who presented to the emergency room after he was found to have three- vessel disease from an elective cardiac cath performed today. 3 vessel CAD - he is s/p CABG. - troponins negative times three. Currently intubated. He was started on insulin drip, heparin drip - continue aspirin, statin, metoprolol Bipolar - continue lithium, seroquel Depression - continue fluoxetine and mirtazapine Chronic hair loss - continue finasteride
[2020-06-17] MEDS: HYDROcodone/Acetaminophen 5/325 mg Tablet PO PRN (16:10)
[2020-06-17] MEDS: Fentanyl 100 MCG/2 ML VIAL SLOW IVP PRN ×3 (17:30→23:53)
[2020-06-17 18:07] LABS: Glucose 120 mg/dL (70-105); Hemoglobin 14.3 g/dL (14.0-18.0); Potassium 4.2 mmol/L (3.5-5.1)
[2020-06-17] MEDS: Famotidine/PF 20 mg/2ml Vial SLOW IVP SCH (20:19)
[2020-06-17] MEDS: Mirtazapine 15 MG TAB PO SCH (20:19)
[2020-06-17] MEDS ORDERED: Atorvastatin Calcium 20 MG TAB PO SCH (21:00)
[2020-06-18] MEDS: Clindamycin/D5W 900 MG in Premix Bag 1 BAG IVPB SCH ×2 (03:10→07:26)
[2020-06-18 04:27] LABS: #Lymphocytes 1.8 thou/uL (1.20-3.40); #Monocytes 0.9 thou/uL (0.11-0.59); #Neutrophils 8.8 thou/uL (1.40-6.50); %Basophils 0.2 % (0.0-1.0); %Eosinophils 0.4 % (0.0-10.0); %Lymphocytes 15.2 % (21.0-51.0); %Monocytes 7.5 % (0.0-10.0); %Neutrophils 76.6 % (42.0-75.0); Mean Corpuscular HGB CONC 32.8 g/dL (32.0-36.0); Mean Corpuscular Hemoglobin 29.6 pg (27.0-31.0); Platelet Count 167 thou/uL (130-400); RBC Distribution Width 11.3 % (11.5-14.5); White Blood Cell (WBC) Count 11.5 thou/uL (4.8-10.8)
[2020-06-18 04:48] LABS: Anion Gap 9 mmol/L (10-20); BUN (Urea Nitrogen) 13 mg/dL (8.9-20.6); Calc. Creatinine Clearance 155 mL/min (70-130); Calcium 7.9 mg/dL (7.8-10.44); Carbon Dioxide 24 mmol/L (22-29); Chloride 109 mmol/L (98-107); Estimated GFR-MDRD Greater than 90; Glucose 123 mg/dL (70-105); Potassium 4.4 mmol/L (3.5-5.1); Sodium 138 mmol/L (136-145)
[2020-06-18 04:54] LABS: Glucose 122 mg/dL (70-105)
[2020-06-18 05:00] VITALS: BMI 27.3
[2020-06-18] MEDS: Ketorolac Tromethamine 30 MG/ML VIAL IVP SCH ×4 (05:22→23:00)
[2020-06-18] MEDS: Fentanyl 100 MCG/2 ML VIAL SLOW IVP PRN ×10 (05:23→23:50)
--- NOTE | 2020-06-18 07:15 | OP ---
DATE OF PROCEDURE: 06/17/2020 PREOPERATIVE DIAGNOSIS: Coronary artery disease. PROCEDURE PERFORMED: Coronary artery bypass graft x4, left internal mammary artery to a 1.5 to 2 mm left anterior descending, saphenous vein graft to a 1.5 mm diagonal and a 2.5 to 3 mm distal right coronary artery. Both diagonal and right coronary artery were free of disease. The vein was thin walled, nice quality, larger than the coronary targets. Radial artery, good quality to a 1.5 mm OM, clean target. DESCRIPTION OF PROCEDURE: After adequate anesthesia had been obtained, the patient was prepped and draped. Left radial artery was harvested after ensuring good collateral flow by Reji's test and plethysmography of the index finger. Following completion of this and simultaneously when Dr. Oquendo did an endovascular vein harvest to the left greater saphenous vein, I performed a median sternotomy entering the distal right pleura with the saw. Left internal mammary artery was harvested. The patient heparinized. The mammary divided distally and treated with papaverine solution with good flow. Aorta and right atrium were cannulated. Cardiopulmonary bypass was begun. Heart was rather full and large, but not thick walled. After aortic cross-clamping, a liter of [place] cardioplegic solution was given. Distal anastomosis was completed. This was complicated by significant bleeding from the coronary orifices after each arteriotomy was performed. A curved bulldog clamp was used to control some of the bleeding and the rest was managed with the suction. 1.5 mm probe was passed distally on each anastomosis prior to completing it. Following this, the cross-clamp was removed and the partial occluding clamp placed and 2 venous anastomosis performed on the aortic root, marked with rings. The radial was anastomosed to the wright of the diagonal graft. Following this, the patient was weaned from cardiopulmonary bypass. Cannula was removed and the aortic cannulation site secured with 4-0 Prolene suture. Mediastinal and right pleural drains were placed following which the sternum was reapproximated with #7 interrupted wire using vancomycin paste on the sternal edges, platelet-rich blood and platelet-poor plasma. Subcutaneous tissue and skin were closed in layers. Job ID: [id number]
[2020-06-18] MEDS: Famotidine/PF 20 mg/2ml Vial SLOW IVP SCH (07:27)
[2020-06-18] MEDS: Aspirin 325 MG TAB PO SCH (07:27)
[2020-06-18] MEDS: FLUoxetine HCl 20 MG CAP PO SCH (07:27)
[2020-06-18] MEDS: HYDROcodone/Acetaminophen 5/325 mg Tablet PO PRN ×4 (07:28→23:00)
[2020-06-18] MEDS: Lithium Carbonate 150 MG CAP PO SCH ×2 (07:34→21:30)
[2020-06-18] MEDS: OXcarbazepine 300 MG TAB PO SCH (07:38)
--- NOTE | 2020-06-18 08:11 | RAD ---
EXAM: Single view of the chest HISTORY: Status post open heart surgery COMPARISON: 06/17/2020 FINDINGS: Single view of the chest shows an enlarged but stable cardiomediastinal silhouette. The pa tient is status post CABG. The endotracheal tube has been removed. The other lines and tubes are unchanged in position. There is no evidence of consolidation, mass, or pleural effusion. IMPRESSION: Stable exam status post extubation
[2020-06-18] MEDS: Sodium Chloride 0.9% 1,000 ML IV SCH (10:41)
[2020-06-18] MEDS ORDERED: Mineral Oil ENEMA PR PRN (11:38)
[2020-06-18] MEDS ORDERED: Nitroglycerin 0.4 MG TAB (25 Tab Bottle) SL PRN (11:38)
[2020-06-18] MEDS ORDERED: diphenhydrAMINE 25 MG CAP PO PRN (11:38)
--- NOTE | 2020-06-18 14:21 | PDOC.HOSPP ---
- Subjective Encounter Date: 06/18/20 Encounter Time: 14:19 Subjective: 40M hx of Bipolar disorder, Schizophrenia who had exertional angina with abnormal perfusion scan who underwent elective cardiac cath found to have severe multi-vessel disease. Pt is now s/p CABG x4 which was done by Dr. Foster on 06/17/2020. [place] to LAD, SVG to diagonal, and SVG to RCA. Pt is now POD#1. Reports he overall feels well. Chest tubes in place which are to suction, only draining 10 mL overnight. Pt reports he is eating and drinking well. Voiding without difficulty. Denies any paraesthesias, SOB, or abdominal pain. Denies any anginal pain. Endorses mild pain around his L forearm near harvest site. Sternal and LE dressings C/D/I. Pain is well controlled. Has been walking without difficulty. Chart and medications reviewed. - Objective Vital Signs & Weight: Vital Signs (12 hours) Temp Pulse Pulse Pulse Resp BP BP 06/18/20 13:26 92 94 115/65 127/75 06/18/20 11:00 97.7 F 89 18 06/18/20 08:00 97.9 F 06/18/20 04:00 97.6 F BP Pulse Ox 06/18/20 13:26 06/18/20 11:00 105/61 100 06/18/20 08:00 100 06/18/20 04:00 Weight Weight 196 lb 3.382 oz Most Recent Monitor Data Heart Rate from ECG 89 NIBP 114/73 NIBP BP-Mean 86 Respiration from ECG 17 SpO2 97 I&O: 06/17/20 06/18/20 06/19/20 06:59 06:59 06:59 Intake Total 2920 3094.7 Output Total 2855 115 Balance 2920 239.7 -115 Result Diagrams: 06/18/20 04:05 06/18/20 04:05 Additional Labs: Accuchecks 06/18/20 06/18/20 06/18/20 07:58 06:17 04:59 POC Glucose 120 H 129 H 109 06/18/20 06/18/20 06/18/20 04:15 03:05 02:00 POC Glucose 112 H 132 H 110 06/18/20 06/18/20 06/17/20 01:05 00:23 23:31 POC Glucose 108 122 H 142 H 06/17/20 06/17/20 06/17/20 21:38 20:39 18:07 POC Glucose 211 H 209 H 107 06/17/20 06/17/20 06/17/20 16:57 16:22 14:58 POC Glucose 106 123 H 92 Hospitalist ROS - Review of Systems Constitutional: denies: fever, chills, sweats, weakness, malaise, other Eyes: denies: vision change ENT: denies: throat pain, throat swelling Respiratory: reports: pleuritic pain. denies: cough, dry, shortness of breath, hemoptysis, SOB with excertion, sputum, wheezing, other Cardiovascular: denies: chest pain, palpitations, orthopnea, paroxysmal noc. dyspnea, edema, light headedness, other Gastrointestinal: denies: nausea, vomiting, abdominal pain, diarrhea, constipation, melena, hematochezia, other Genitourinary: denies: dysuria, frequency, incontinence, hematuria, retention, other Musculoskeletal: reports: arm pain Skin: denies: rash Neurological: denies: weakness, numbness, incoordination, change in speech, confusion, seizures, other - Medication Medications: Active Medications Generic Name Dose Route Start Last Admin Trade Name Freq PRN Reason Stop Dose Admin Hydrocodone Bitart/Acetaminophen 2 tab 06/17/20 11:24 06/18/20 13:14 [place] 5/325 PO 2 tab Q4H PRN Administration Severe Pain (7-10) Aspirin 325 mg 06/18/20 09:00 06/18/20 07:27 Aspirin PO 325 mg DAILY PARVIZ Administration Bisacodyl 10 mg 06/17/20 11:24 06/18/20 11:56 Dulcolax PO 10 mg Q12H PRN Administration Constipation Fentanyl 25 mcg 06/17/20 11:24 06/18/20 07:29 Sublimaze SLOW IVP 06/19/20 11:17 25 mcg Q2H PRN Administration Moderate Pain (4-6) Fentanyl 50 mcg 06/17/20 11:24 06/18/20 14:08 Sublimaze SLOW IVP 06/19/20 11:17 50 mcg Q2H PRN Administration Severe Pain (7-10) Fluoxetine HCl 20 mg 06/17/20 09:00 06/18/20 07:27 Prozac PO 20 mg DAILY PARVIZ Administration Ketorolac Tromethamine 15 mg 06/17/20 12:00 06/18/20 11:56 Toradol IVP 06/20/20 12:01 15 mg Q6HR PARVIZ Administration [place] Carbonate 600 mg 06/16/20 21:00 06/18/20 07:34 [place] Carbonate PO 600 mg BID PARVIZ Administration Mirtazapine 15 mg 06/16/20 21:00 06/17/20 20:19 Remeron PO 15 mg HS PARVIZ Administration Oxcarbazepine 600 mg 06/17/20 09:00 06/18/20 07:38 Trileptal PO 600 mg DAILY PARVIZ Administration Quetiapine Fumarate 200 mg 06/16/20 21:00 06/17/20 20:19 Seroquel PO 200 mg HS PARVIZ Administration - Exam General Appearance: NAD, awake alert Eye: PERRL, anicteric sclera ENT: normocephalic atraumatic, no oropharyngeal lesions, moist mucosa Neck: supple, symmetric, no JVD, no thyromegaly, no lymphadenopathy, no carotid bruit Heart: RRR, no murmur, no gallops, no rubs, normal peripheral pulses Heart - other findings: Sternal dressing in place C/D/I Respiratory: CTAB, no wheezes, no rales, no ronchi, normal chest expansion, no tachypnea, normal percussion Gastrointestinal: soft, non-tender, non-distended, normal bowel sounds, no palpable masses, no hepatomegaly, no splenomegaly, no bruit Extremities: no cyanosis, no clubbing, no edema Extremities - other findings: LLE SVG dressing C/D/I. L arterial harvest site dressing C/D/I Skin: normal turgor, no lesions, no rashes Hosp A/P (1) S/P CABG (coronary artery bypass graft) Code(s): Z95.1 - PRESENCE OF AORTOCORONARY BYPASS GRAFT Status: Acute (2) Bipolar disorder Code(s): F31.9 - BIPOLAR DISORDER, UNSPECIFIED Status: Acute (3) Hyperlipidemia Code(s): E78.5 - HYPERLIPIDEMIA, UNSPECIFIED Status: Acute (4) Marijuana dependence Code(s): F12.20 - CANNABIS DEPENDENCE, UNCOMPLICATED Status: Acute - Plan 40M with PMHx of schizophrenia and bipolar disorder who was found to have multi- vessel coronary disease after an elective cath, now POD#[address] Foster. S/P CABG Pt initially presented for elective heart cath after having exertional anginal symptoms and an abnormal myocardial perfusion scan. On heart cath, pt was found to have multivessel disease to the LAD, diagonal, and RCA. Pt underwent CABG x4 with Dr. Foster on 06/17/2020. Pt tolerated surgery well. Initially post-cabg care in ICU, now extubated and transferred to medical floor. Pt's sternal dressing and harvest site dressings C/D/I. Pt doing well after surgery with no complaints. Chest tubes still in place and on suction with 10 mL output overnight. CXR shows CT in place with normal cardiac silhouette, no evidence of pneumothorax, tamponade, or effusion. BUN/Cr 13/0.79, Na 138, H/H stable 13.0/ 39.6. -CV surgery following, reccs appreciated -POD#1 -I/Os -Tele -Continue to trend electrolytes and kidney function -Encouraged IS, DVT proph w/ambulation and MARINA hose CAD Multi-vessel coronary artery disease. Pt denies family hx of coronary disease. Denies tobacco use, but does endorse daily marijuana use. Cholesterol panel elevated. Dr. Jackson of Cardiolgoy following. -Cards following, recs appreciated -Continue metoprolol 6.25 mg BID -Continue ASA 325 mg daily -Continue atorvastatin 40 mg qhs -Nitro 0.4 mg prn Hyperlipidemia: Cholesterol Panel shows cholesterol elevated to 228, LDL 144 HDL 38. High intensity statin initiated with atorvastatin. Pt also has hypertriglyceridemia with triglycerides level 229. Will need Vascepa upon discharge. -Atorvastatin 40 mg daily -Cardiology and PCP f/u after discharge Bipolar disorder: Hx of bipolar disorder and schizophrenia on multiple medications. Pts mood and affect congruent and stable during admission. -Continue home meds: trileptal, prozac, remeron, lithium, and seroquel Full Code Case discussed with attending physician, Dr. Jacinto. All imaging was personally reviewed by me. I saw and evaluated the patient. He has now been transferred to the medical floor. One chest tube has been removed. Another one anticipated to be removed tomorrow. He reports 6/10 chest pain, relieved with toradol. Also has left arm pain near the graft which is his biggest complaint. He reports pleuritic pain as well. No fevers Vitals: stable Exam: - oriented times three. Appears well - tenderness to palpation of chest wall and mid abdomen near surgical scar. One chest tube in place. No purulent drainage noted from dressing on chest/ abdomen or arm - lungs: CTAB - pulses: 2+ radial intact - abdomen: nondistended - extremities: no edema Plan CAD s/p CABG: continue cardiac meds. He is now off antibiotics. Continue with physical therapy Leukocytosis: likely reactive from surgery, down to 11.5 .Levaquin and clindamycin d/c Anemia: stable, continue to trend I will try to order his medications in advance since he uses [facility] pharmacy
[2020-06-18] MEDS ORDERED: Metoprolol Tartrate 25 MG TAB PO SCH (21:00)
[2020-06-18] MEDS: Famotidine 20 MG TAB PO SCH (21:30)
[2020-06-18] MEDS: Mirtazapine 15 MG TAB PO SCH (21:30)
[2020-06-18] MEDS: Atorvastatin Calcium 40 MG TAB PO SCH (21:30)
[2020-06-19] MEDS: Fentanyl 100 MCG/2 ML VIAL SLOW IVP PRN ×2 (02:10→05:35)
[2020-06-19] MEDS: HYDROcodone/Acetaminophen 5/325 mg Tablet PO PRN ×5 (04:00→22:20)
[2020-06-19] MEDS: Ketorolac Tromethamine 30 MG/ML VIAL IVP SCH ×3 (05:35→19:15)
[2020-06-19 07:18] LABS: Hemoglobin 11.8 g/dL (14.0-18.0); Mean Corpuscular Hemoglobin 30.3 pg (27.0-31.0); Mean Corpuscular Volume 91.6 fL (78.0-98.0); Mean Platelet Volume 7.9 fL (7.4-10.4); Platelet Count 146 thou/uL (130-400); RBC Distribution Width 11.3 % (11.5-14.5); Red Blood Cell (RBC) Count 3.91 mill/uL (4.70-6.10); White Blood Cell (WBC) Count 9.3 thou/uL (4.8-10.8)
[2020-06-19 07:21] LABS: Hemoglobin A1c 4.9 % (4.0-6.0)
[2020-06-19 07:33] LABS: ALT (SGPT) 31 U/L (8-55); AST (SGOT) 25 U/L (5-34); Albumin 3.1 g/dL (3.5-5.0); Alkaline Phosphatase 56 U/L (40-110); Anion Gap 8 mmol/L (10-20); BUN (Urea Nitrogen) 12 mg/dL (8.9-20.6); Bilirubin, Total 0.6 mg/dL (0.2-1.2); Calc. Creatinine Clearance 150 mL/min (70-130); Calcium 8.1 mg/dL (7.8-10.44); Carbon Dioxide 26 mmol/L (22-29); Chloride 108 mmol/L (98-107); Estimated GFR-MDRD Greater than 90; Globulin 1.8 g/dL (2.4-3.5); Glucose 100 mg/dL (70-105); Potassium 4.2 mmol/L (3.5-5.1); Protein, Total 4.9 g/dL (6.0-8.3); Sodium 138 mmol/L (136-145)
[2020-06-19] MEDS: Aspirin 325 MG TAB PO SCH (08:45)
[2020-06-19] MEDS: Famotidine 20 MG TAB PO SCH ×2 (08:45→20:30)
[2020-06-19] MEDS: Lithium Carbonate 150 MG CAP PO SCH ×2 (08:45→20:31)
[2020-06-19] MEDS: Furosemide 40 MG TAB PO SCH (08:45)
[2020-06-19] MEDS: FLUoxetine HCl 20 MG CAP PO SCH (08:45)
[2020-06-19] MEDS: Metoprolol Tartrate 25 MG TAB PO SCH ×2 (08:46→20:31)
[2020-06-19] MEDS ORDERED: Polyethylene Glycol 3350 17 GM Packet PO PRN (08:48)
[2020-06-19] MEDS: Potassium Chloride 10 MEQ TAB PO SCH (08:50)
[2020-06-19] MEDS: OXcarbazepine 300 MG TAB PO SCH (08:54)
--- NOTE | 2020-06-19 13:23 | RAD ---
EXAM: CHEST ONE VIEW HISTORY: Pleuritic chest pain. COMPARISON: 06/18/2020 FINDINGS: Postoperative changes related to CABG are again noted. A right-sided vascular catheter is unchanged i n position. Cardiac silhouette remains enlarged. Pulmonary vasculature is within normal limits for Previously seen mediastinal drains have been removed. Subsegmental atelectasis is present at the left lung base and right mid and to a stent left midlung zones. Linear density is seen along the left cardiac border which could be related to adjacent volume loss in this region. This could potentially be artifactual. Trace amount of pneumomediastinal gas could not be entirely excluded. No other interval change. IMPRESSION: 1. Interval removal of mediastinal drains with right-sided vascular catheter remain in place. 2. Mild cardiomegaly. 3. Subsegmental atelectasis bilaterally. 4. No obvious pneumothorax is seen, and there is no pleural effusion. There is a linear density seen along the left cardiac border which may be artifactual due to overlying structures, but a very tiny amount of mediastinal gas could not be excluded.
--- NOTE | 2020-06-19 13:38 | PDOC.HOSPP ---
- Subjective Encounter Date: 06/19/20 Encounter Time: 09:00 Subjective: No overnight events. Pt reports he overall feels well. Pain is tolerable. Endorses mild pain to the L arm graft site. Denies N/V/D. Appetite good. Voiding appropriately. No BM since surgery, has passed flatus. Ambulating well. Denies SOB, endorses sternal pain near incision site, denies new crushing chest pain, or abdominal pain. Chest tubes removed. Chart and medications reviewed. - Objective Vital Signs & Weight: Vital Signs (12 hours) Temp Pulse Pulse Pulse Resp BP BP 06/19/20 08:22 112 H 89 130/72 112/66 06/19/20 08:00 98.2 F 88 17 06/19/20 03:49 98.4 F 94 20 BP Pulse Ox Pulse Ox 06/19/20 08:22 96 06/19/20 08:00 112/66 96 06/19/20 03:49 112/59 L 94 L Weight Weight 196 lb 9.6 oz Most Recent Monitor Data Heart Rate from ECG 89 NIBP 114/73 NIBP BP-Mean 86 Respiration from ECG 17 SpO2 97 I&O: 06/18/20 06/19/20 06/20/20 06:59 06:59 06:59 Intake Total 3094.7 960 Output Total 2855 2775 Balance 239.7 -1815 Result Diagrams: 06/19/20 07:00 06/19/20 07:00 Hospitalist ROS - Review of Systems Constitutional: denies: fever, chills, sweats, weakness, malaise, other Eyes: denies: pain, vision change, conjunctivae inflammation, eyelid inflammation, redness, other ENT: denies: ear pain, ear discharge, nose pain, nose discharge, nose congestion , mouth pain, mouth swelling, throat pain, throat swelling, other Respiratory: reports: pleuritic pain. denies: cough, dry, shortness of breath, hemoptysis, SOB with excertion, sputum, wheezing, other Cardiovascular: denies: chest pain (Pain near sternal incision), palpitations, orthopnea, paroxysmal noc. dyspnea, edema, light headedness, other Gastrointestinal: reports: constipation. denies: nausea, vomiting, abdominal pain, diarrhea, melena, hematochezia, other Genitourinary: denies: dysuria, frequency, incontinence, hematuria, retention, other Skin: denies: rash Neurological: denies: weakness, numbness, confusion - Medication Medications: Active Medications Generic Name Dose Route Start Last Admin Trade Name Freq PRN Reason Stop Dose Admin Hydrocodone Bitart/Acetaminophen 2 tab 06/17/20 11:24 06/19/20 11:26 [place] 5/325 PO 2 tab Q4H PRN Administration Severe Pain (7-10) Aspirin 325 mg 06/18/20 09:00 06/19/20 08:45 Aspirin PO 325 mg DAILY PARVIZ Administration Atorvastatin Calcium 40 mg 06/18/20 21:00 06/18/20 21:30 Lipitor PO 40 mg HS PARVIZ Administration Bisacodyl 10 mg 06/17/20 11:24 06/18/20 11:56 Dulcolax PO 10 mg Q12H PRN Administration Constipation Famotidine 20 mg 06/18/20 21:00 06/19/20 08:45 Pepcid PO 20 mg BID PARVIZ Administration Fluoxetine HCl 20 mg 06/17/20 09:00 06/19/20 08:45 Prozac PO 20 mg DAILY PARVIZ Administration Furosemide 40 mg 06/19/20 09:00 06/19/20 08:45 Lasix PO 40 mg DAILY PARVIZ Administration Ketorolac Tromethamine 15 mg 06/17/20 12:00 06/19/20 11:29 Toradol IVP 06/20/20 12:01 15 mg Q6HR PARVIZ Administration [place] Carbonate 600 mg 06/16/20 21:00 06/19/20 08:45 [place] Carbonate PO 600 mg BID PARVIZ Administration Metoprolol Tartrate 12.5 mg 06/19/20 09:00 06/19/20 08:46 Lopressor PO 12.5 mg BID PARVIZ Administration Mirtazapine 15 mg 06/16/20 21:00 06/18/20 21:30 Remeron PO 15 mg HS PARVIZ Administration Oxcarbazepine 600 mg 06/17/20 09:00 06/19/20 08:54 Trileptal PO 600 mg DAILY PARVIZ Administration Potassium Chloride 10 meq 06/19/20 08:00 06/19/20 08:50 Klor-Con 10 PO 10 meq QAM-WM PARVIZ Administration Quetiapine Fumarate 200 mg 06/16/20 21:00 06/18/20 21:30 Seroquel PO 200 mg HS PARVIZ Administration Sodium Chloride 10 ml 06/18/20 21:00 06/19/20 08:58 Flush - Normal Saline IVF 10 ml Q12HR PARVIZ Administration - Exam General Appearance: NAD, awake alert Eye: anicteric sclera ENT: normocephalic atraumatic, no oropharyngeal lesions, moist mucosa Neck: supple, symmetric, no JVD, no thyromegaly, no lymphadenopathy, no carotid bruit Heart: RRR, no murmur, no gallops, no rubs, normal peripheral pulses Heart - other findings: Sternal dressing C/D/I Gastrointestinal: soft, non-tender, non-distended, normal bowel sounds, no palpable masses, no hepatomegaly, no splenomegaly, no bruit Extremities: no cyanosis, no clubbing, no edema Extremities - other findings: SVG site dressing C/D/I Skin: normal turgor, no lesions, no rashes Neurological: cranial nerve grossly intact, normal sensation to touch, no weakness, no focal deficits, no new deficit Musculoskeletal: normal tone, normal strength, no muscle wasting Psychiatric: normal affect, normal behavior, A&O x 3 Hosp A/P (1) S/P CABG (coronary artery bypass graft) Code(s): Z95.1 - PRESENCE OF AORTOCORONARY BYPASS GRAFT Status: Acute (2) Bipolar disorder Code(s): F31.9 - BIPOLAR DISORDER, UNSPECIFIED Status: Acute (3) Hyperlipidemia Code(s): E78.5 - HYPERLIPIDEMIA, UNSPECIFIED Status: Acute (4) Marijuana dependence Code(s): F12.20 - CANNABIS DEPENDENCE, UNCOMPLICATED Status: Acute - Plan 40M with PMHx of schizophrenia and bipolar disorder who was found to have multi- vessel coronary disease after an elective cath, now POD#[address] Foster. S/P CABG Pt initially presented for elective heart cath after having exertional anginal symptoms and an abnormal myocardial perfusion scan. On heart cath, pt was found to have multivessel disease to the LAD, diagonal, and RCA. Pt underwent CABG x4 with Dr. Foster on 06/17/2020. Pt tolerated surgery well. Initially post-cabg care in ICU, now extubated and transferred to medical floor. Pt's sternal dressing and harvest site dressings C/D/I. Pt doing well after surgery with no complaints. Chest tubes removed. CXR shows mild atelectasis, no pneumothorax, tamponade, or effusion. Pt voiding appropriately, no BM yet. Will up bowel regimen. -CV surgery following, reccs appreciated -POD#2 -I/Os -Tele -Continue to trend electrolytes and kidney function -Encouraged IS, DVT proph w/ambulation and MARINA hose CAD Multi-vessel coronary artery disease. Pt denies family hx of coronary disease. Denies tobacco use, but does endorse daily marijuana use. Cholesterol panel elevated. Dr. Jackson of Cardiology following. -Cards following, reccs appreciated -Metoprolol increased to 12.5 mg BID -Continue ASA 325 mg daily -Continue atorvastatin 40 mg qhs -Nitro 0.4 mg prn Hyperlipidemia: Cholesterol Panel shows cholesterol elevated to 228, LDL 144 HDL 38. High intensity statin initiated with atorvastatin. Pt also has hypertriglyceridemia with triglycerides level 229. -Atorvastatin 40 mg daily -Cardiology and PCP f/u after discharge Bipolar disorder: Hx of bipolar disorder and schizophrenia on multiple medications. Pts mood and affect congruent and stable during admission. -Continue home meds: trileptal, prozac, remeron, lithium, and seroquel Full Code Case discussed with attending physician, Dr. Jacinto. All imaging was personally reviewed by me. Patient seen and evaluated with PA. Agree with A/P above Patient still continues to complain of pain when taking a deep breath. He does use incentive spirometer with some pain. States he wants to try to get off fentanyl. NO bowel movement yet. General: Vitals: stable Gen: patient alert, awake, oriented times three CV: rrr, no murmurs, rubs, gallops. Chest tender to palpation. Dressing on chest intact, no signs of infection Abdomen: soft, mild tenderness, nondistended Pulses : right DP difficult to palpate, foot warm. 2+ posterior tibial right. Left DP 2+. Foot warm . radial pulses 2+ Extremities; no edema Chest X ray: mild cardiomegaly, no pneumonia Impression : CAD s/p CABG - POD1, both chest tubes removed. Continue with PT. Cardiac meds have been sent to [facility] pharmacy today. Metoprolol increased. Anticipate discharge over the weekend HL - on atorvastatin 40 Bipolar - continue home meds Anemia - Hb 11, stable Leukocytosis: resolved, antibiotics discontinued
[2020-06-19] MEDS ORDERED: Morphine 2 MG/ML VIAL SLOW IVP PRN (16:32)
--- NOTE | 2020-06-19 16:36 | EKG ---
Test Reason : ROUTINE Blood Pressure : / mmHG Vent. Rate : 070 BPM Atrial Rate : 070 BPM P-R Int : 162 ms QRS Dur : 104 ms QT Int : 402 ms P-R-T Axes : 047 060 000 degrees QTc Int : 434 ms Sinus rhythm with occasional Premature ventricular complexes Possible Inferior infarct , age undetermined Abnormal ECG No previous ECGs available Confirmed by DR. Lay VENTURA ([id number]) on 06/19/2020 4:36:21 PM Referred By: ODELL MARC Confirmed By:DR. Lay VENTURA
--- NOTE | 2020-06-19 16:38 | EKG ---
Test Reason : POST CABG Blood Pressure : / mmHG Vent. Rate : 064 BPM Atrial Rate : 064 BPM P-R Int : 164 ms QRS Dur : 092 ms QT Int : 448 ms P-R-T Axes : 067 061 -08 degrees QTc Int : 462 ms Normal sinus rhythm Cannot rule out Inferior infarct , age undetermined Abnormal ECG No previous ECGs available Confirmed by DR. Lay VENTURA ([id number]) on 06/19/2020 4:38:11 PM Referred By: ESMER Confirmed By:DR. Lay VNETURA
[2020-06-19] MEDS: Morphine 4 MG/ML VIAL SLOW IVP PRN ×2 (17:16→20:26)
[2020-06-19] MEDS: Mirtazapine 15 MG TAB PO SCH (20:31)
[2020-06-19] MEDS: Atorvastatin Calcium 40 MG TAB PO SCH (20:32)
[2020-06-20] MEDS: Ketorolac Tromethamine 30 MG/ML VIAL IVP SCH ×3 (00:25→11:24)
[2020-06-20 08:18] VITALS: TEMP 98.3
[2020-06-20] MEDS: Famotidine 20 MG TAB PO SCH (08:21)
[2020-06-20] MEDS: Aspirin 325 MG TAB PO SCH (08:21)
[2020-06-20] MEDS: Furosemide 40 MG TAB PO SCH (08:21)
[2020-06-20] MEDS: Lithium Carbonate 150 MG CAP PO SCH (08:21)
[2020-06-20] MEDS: HYDROcodone/Acetaminophen 5/325 mg Tablet PO PRN (08:22)
[2020-06-20] MEDS: OXcarbazepine 300 MG TAB PO SCH (08:22)
[2020-06-20] MEDS: FLUoxetine HCl 20 MG CAP PO SCH (08:23)
[2020-06-20] MEDS: Metoprolol Tartrate 25 MG TAB PO SCH (08:23)
[2020-06-20] MEDS: Potassium Chloride 10 MEQ TAB PO SCH (08:24)
[2020-06-20 12:57] VITALS: BP 109/63
[2020-06-20] MEDS ORDERED: Ketorolac Tromethamine 30 MG/ML VIAL IVP PRN (18:00)
--- NOTE | 2020-06-22 12:56 | DIS ---
DATE OF ADMISSION: 06/16/2020 DATE OF DISCHARGE: 06/20/2020 This is a gentleman who was admitted by Dr. La, found to have triple-vessel coronary disease and on 06/17, he underwent coronary bypass grafting with a left internal mammary artery to a good LAD, a radial artery to a clean OM, saphenous vein graft, good quality to a clean diagonal and distal right coronary artery. His postoperative course was uneventful with a discharge echo showing an EF of 55% to 60%. Discharge medications included: 1. Atorvastatin 40 a day. 2. Metoprolol 12.5 b.i.d. 3. He is to resume his mirtazapine 15 at bedtime. 4. Seroquel 200 at bedtime. 5. Trileptal 600 daily. 6. [place] 600 b.i.d. 7. Fluoxetine 20 mg daily. 8. Atarax 1 tablet daily. 9. Aspirin 1 tablet daily. Discharge and followup instructions were given. Job ID: [id number]
== END 2020-06-20 12:45 | disposition home or self-care (01) | DRG 234 ==
LOC: 2NO 11:14 → CCU 06-17 08:36 → 2NO 06-18 10:58
PROVIDERS: ADMIT Internal Medicine; ATTEND Internal Medicine
PROC: 02100Z9 Bypass Coronary Artery, One Artery from Left Internal Mammary, Open Approach (ICD-10-PCS; principal; 2020-06-17)
PROC: 021209W Bypass Coronary Artery, Three Arteries from Aorta with Autologous Venous Tissue, Open Approach (ICD-10-PCS; 2020-06-17)
PROC: 06BQ4ZZ Excision of Left Saphenous Vein, Percutaneous Endoscopic Approach (ICD-10-PCS; 2020-06-17)
PROC: 5A1221Z Performance of Cardiac Output, Continuous (ICD-10-PCS; 2020-06-17)
PROC: 4A023N7 Measurement of Cardiac Sampling and Pressure, Left Heart, Percutaneous Approach (ICD-10-PCS; 2020-06-17)
DX: I25.10 Atherosclerotic heart disease of native coronary artery without angina pectoris (principal); F31.9 Bipolar disorder, unspecified; E78.1 Pure hyperglyceridemia; L65.9 Nonscarring hair loss, unspecified; E78.5 Hyperlipidemia, unspecified; F20.9 Schizophrenia, unspecified; D64.9 Anemia, unspecified; Z90.49 Acquired absence of other specified parts of digestive tract; Z88.0 Allergy status to penicillin
CPT/HCPCS: 36415; 36416; 36430; 71045; 80048; 80053; 80061; 82805; 83036; 84484; 85025; 85027; 85610; 85730; 86850; 86900; 86901; 93005; 93010; 93306; 93798; 94002; 97139; J0690; J1642; J1644; J1815; J1885; J1956; J2250; J2270; J2440; J2704; J2720; J3010; J3370; J3475; J3480; J3490; P9045; S0017; S0028